=== PATIENT | female | born 1955 | race Caucasian/White ===

== ENCOUNTER → 2020-08-08 | Outpatient (CLI) | payer MEDICARE, BC ==
--- NOTE | 2020-08-15 10:21 | MM ---
Reason for exam: screening (asymptomatic). Last mammogram was performed 1 year and 1 month ago. History: Patient is postmenopausal. Physical Findings: A clinical breast exam by your physician is recommended on an annual basis and results should be correlated with mammographic findings. MG 3D Screening Mammo W/Cad Bilateral CC and MLO view(s) were taken. Prior study comparison: June 30, 2019, mammogram. May 28, 2018, mammogram. The breast tissue is heterogeneously dense. This may lower the sensitivity of mammography. Benign vascular calcifications on the right breast. No significant changes when compared with prior studies. ASSESSMENT: Negative, BI-RAD 1 RECOMMENDATION: Routine screening mammogram of both breasts in 1 year.
== END | disposition home or self-care (01) ==
LOC: RADMAMWWP 13:49
PROVIDERS: ATTEND Family Medicine
DX: Z12.31 Encounter for screening mammogram for malignant neoplasm of breast (principal)
CPT/HCPCS: 77063; 77067

== ENCOUNTER → 2021-08-16 | Outpatient (CLI) | payer MEDICARE, BC ==
--- NOTE | 2021-08-17 11:33 | MM ---
Reason for exam: screening (asymptomatic). Last mammogram was performed 1 year ago. History: Patient is postmenopausal. Physical Findings: A clinical breast exam by your physician is recommended on an annual basis and results should be correlated with mammographic findings. MG 3D Screening Mammo W/Cad Bilateral CC and MLO view(s) were taken. Prior study comparison: August 08, 2020, bilateral MG 3d screening mammo w/cad. June 30, 2019, mammogram. The breast tissue is heterogeneously dense. This may lower the sensitivity of mammography. There is no discrete abnormality. No significant changes when compared with prior studies. ASSESSMENT: Negative, BI-RAD 1 RECOMMENDATION: Routine screening mammogram of both breasts in 1 year.
== END | disposition home or self-care (01) ==
LOC: RADMAMWWP 07:12
PROVIDERS: ATTEND Family Medicine
DX: Z12.31 Encounter for screening mammogram for malignant neoplasm of breast (principal); Z78.0 Asymptomatic menopausal state
CPT/HCPCS: 77063; 77067

== ENCOUNTER → 2022-08-17 | Outpatient (CLI) | payer MEDICARE, BC ==
--- NOTE | 2022-08-17 12:09 | BD ---
EXAMINATION TYPE: Axial Bone Density DATE OF EXAM: 08/17/2022 COMPARISON: NONE CLINICAL HISTORY: 67 years year old Female. ICD-10 CODE: Z13.820 SCREENING FOR OSTEOPOROSIS Height: 56 Weight: 148 FRAX RISK QUESTIONS: Alcohol (3 or more units per day): NO Family History (Parent hip fracture): NO Glucocorticoids (More than 3mos): NO History of Fracture in Adulthood: NO Secondary Osteoporosis: 1. Type 1 Diabetes: NO 2. Hyperthyroidism: NO 3. Menopause before 45: NO 4. Malnutrition: NO 5. Chronic liver disease: NO Rheumatoid Arthritis: NO Current Tobacco Use: NO RISK FACTORS HISTORY OF: Hip Fracture (Right/Left): NO Spine Fracture: NO History of Wrist Fracture: NO Surgery to Spine/Hip(right/left)/Wrist (right/left): NO Family History of Osteoporosis: NO Active: YES Diet low in dairy products/other sources of calcium: YES Postmenopausal woman: YES Take estrogen and/or progesterone medications: NO Lost more than 2 inches in height since high school: NO Frequent falls: NO Poor Health: NO Hyperparathyroidism: NO Adrenal Insufficiency: NO MEDICATIONS: Prednisone or other steroids: NO Thyroid Medications: NO Which medication: Osteoporosis Medications: NO Additional Medications: metformin, hydrochlorate, atorvastatin, multi vit., vit d EXAM MEASUREMENTS: Bone mineral densitometry was performed using the [employer] System. Bone mineral density as measured about the Lumbar spine is: ----- L1-L4(G/cm2): 1.405 T Score Values are as follows: ----- L1: 0.7 ----- L2: 1.4 ----- L3: 2.9 ----- L4: 2.1 ----- L1-L4: 1.9 BASELINE STUDY AT [facility] Bone mineral density about the R hip (g/cm2): 0.807 Bone mineral density about the L hip (g/cm2): 0.798 T Score values are as follows: -----R Neck: -1.7 -----L Neck: -1.7 -----R Total: -1.4 -----L Total: -1.6 BASELINE STUDY AT [facility] FRAX%s: The graph provided illustrates a 9.7% chance for a major osteoporotic fx and a 1.3% chance fo r the hips probability for fx in 10 years time. IMPRESSION: Osteopenia (T Score between -2.5 and -1). There is slightly increased risk of fracture and the patient may be considered for treatment. Re-Screen 2-5 years. NOTE: T-SCORE=SD OF THE YOUNG ADULT MEAN.
--- NOTE | 2022-08-20 20:31 | MM ---
Reason for Exam: Screening (asymptomatic). Last screening mammogram was performed 12 month(s) ago. Patient History: Menarche at age 12. First Full-Term at age 19. Postmenopausal. Niece had breast cancer, age 35. Maternal cousin (Vicki) had breast cancer, age 68. Maternal cousin (Dorothy Trotter) had breast cancer, age 72. Maternal cousin (Rose Marie) had breast cancer, age 43. Risk Values: Laura 5 year model risk: 1.2%. NCI Lifetime model risk: 4.2%. Prior Study Comparison: 06/30/2019 Screening Mammogram, Unknown. 08/08/2020 Bilateral Screening Mammogram, [facility]. 08/16/2021 Bilateral Screening Mammogram, [facility]. Tissue Density: The breast tissue is heterogeneously dense. This may lower the sensitivity of mammography. Findings: Analyzed By CAD. There is no suspicious group of microcalcifications or new suspicious mass in either breast. Chronically inverted nipples. Unchanged global asymmetry posterior upper outer quadrant left breast. Overall Assessment: Benign, BI-RAD 2 Management: Screening Mammogram of both breasts in 1 year. 1. Patient should continue monthly self breast exams. 2. A clinical breast exam by your physician is recommended on an annual basis. 3. This exam should not preclude additional follow-up of suspicious palpable abnormalities. Electronically signed and approved by: Lenard Larsen M.D. Radiologist
== END | disposition home or self-care (01) ==
LOC: RADMAMWWP 10:08
PROVIDERS: ATTEND Family Medicine
DX: Z12.31 Encounter for screening mammogram for malignant neoplasm of breast (principal); Z13.820 Encounter for screening for osteoporosis; M85.89 Other specified disorders of bone density and structure, multiple sites
CPT/HCPCS: 77063; 77067; 77080

== ENCOUNTER → 2023-08-19 | Outpatient (CLI) | payer MEDICARE, BC ==
--- NOTE | 2023-08-20 10:34 | MM ---
Reason for Exam: Screening (asymptomatic). Last screening mammogram was performed 12 month(s) ago. Patient History: Menarche at age 12. First Full-Term at age 19. Postmenopausal. Niece had breast cancer, age 35. Maternal cousin (Vicki) had breast cancer, age 68. Maternal cousin (Dorothy Trotter) had breast cancer, age 72. Maternal cousin (Rose Marie) had breast cancer, age 43. Risk Values: Laura 5 year model risk: 1.2%. NCI Lifetime model risk: 4.0%. Prior Study Comparison: 08/08/2020 Bilateral Screening Mammogram, [facility]. 08/16/2021 Bilateral Screening Mammogram, [facility]. 08/17/2022 Bilateral MG 3D screening mammo w/cad, [facility]. Tissue Density: The breast tissue is heterogeneously dense. This may lower the sensitivity of mammography. Findings: Analyzed By CAD. Pattern appears symmetrical and stable. No significant interval change is evident. Benign vascular calcification in the right breast. No suspicious groups of microcalcifications, spiculated or lobular masses, architectural distortion or other secondary signs of malignancy are mammographically apparent. Overall Assessment: Benign, BI-RAD 2 Management: Screening Mammogram of both breasts in 1 year. A negative mammogram report should not preclude additional follow up of suspicious palpable abnormalities. Patient should continue monthly self breast exam. A clinical breast exam by your physician is recommended on an annual basis and results should be correlated with mammographic findings. Electronically signed and approved by: Eladio Gimenez D.O. Radiologis
== END | disposition home or self-care (01) ==
LOC: RADMAMWWP 09:06
PROVIDERS: ATTEND Family Medicine
DX: Z12.31 Encounter for screening mammogram for malignant neoplasm of breast (principal); Z78.0 Asymptomatic menopausal state; Z80.3 Family history of malignant neoplasm of breast
CPT/HCPCS: 77063; 77067

== ENCOUNTER → 2024-08-21 | Outpatient (CLI) | payer MEDICARE, BC ==
--- NOTE | 2024-08-21 08:19 | US ---
EXAMINATION TYPE: US abdomen complete DATE OF EXAM: 08/21/2024 COMPARISON: NONE CLINICAL INDICATION: Female, 69 years old with history of R10.84 ABD PAIN; Pain TECHNIQUE: Grayscale and color Doppler imaging of the abdomen was performed. FINDINGS: EXAM MEASUREMENTS: Liver Length: 14.7 cm Gallbladder Wall: .5 cm CBD: .4 cm Spleen: 9.5 cm Right Kidney: 9.2 x 4.4 x 3.8 cm Left Kidney: 9.9 x 4.3 x 3.5 cm Pancreas: Tail obscured by overlying bowel gas Liver: Increased attenuation no dilated ducts, masses or cysts. Gallbladder: Multiple stones seen Evidence for sonographic Flood's sign: no CBD: wnl Spleen: wnl Right Kidney: No hydronephrosis or masses seen Left Kidney: No hydronephrosis or masses seen Upper IVC: wnl Abd Aorta: wnl The liver is homogenous with increased echotexture.. The intrahepatic portion of the IVC and proxima l abdominal aorta are within normal limits. There is no evidence of cholelithiasis. Common bile yariel t is unremarkable. The visualized portions of the pancreas are homogenous. The spleen is unremarkab le. Kidneys are symmetric and free of hydronephrosis. No renal lesions are seen. IMPRESSION: 1. No evidence for acute process. 2. Hepatic steatosis. [facility], , 08/21/2024 8:16 AM
--- NOTE | 2024-08-30 16:56 | MM ---
Reason for Exam: Screening (asymptomatic). Last mammogram was performed 1 year(s) and 1 month(s) ago. Patient History: Menarche at age 12. First Full-Term at age 19. Postmenopausal. Niece had breast cancer, age 35. Maternal cousin (Vicki) had breast cancer, age 68. Maternal cousin (Dorothy Trotter) had breast cancer, age 72. Maternal cousin (Rose Marie) had breast cancer, age 43. Risk Values: Laura 5 year model risk: 1.2%. NCI Lifetime model risk: 3.9%. Prior Study Comparison: 08/16/2021 Bilateral Screening Mammogram, [facility]. 08/17/2022 Bilateral MG 3D screening mammo w/cad, [facility]. 08/19/2023 Bilateral MG 3D screening mammo w/cad, [facility]. Tissue Density: The breasts are heterogeneously dense, which may obscure small masses. Findings: Analyzed By CAD. The pattern is symmetrical. Vascular calcifications within the right breast. There is a focal asymmetry within the upper outer aspect left breast which appears to be changing. Additional workup with compression views and mediolateral view are recommended. Ultrasound may be acquired to complete the examination. Right breast:No suspicious groups of microcalcifications, spiculated or lobular masses, architectural distortion or other secondary signs of malignancy are mammographically apparent. Overall Assessment: Incomplete: need additional imaging evaluation, BI-RAD 0 Management: Diagnostic Mammogram of the left breast. Diagnostic Breast Ultrasound of the left breast. A negative mammogram report should not preclude additional follow up of suspicious palpable abnormalities. Patient should continue monthly self breast exam. A clinical breast exam by your physician is recommended on an annual basis and results should be correlated with mammographic findings. Note on Laura scores and lifetime risk: 1. A Laura score greater than 3% is considered moderate risk. If this is the case, consider specialist referral to assess eligibility for a risk reducing agent. 2. If overall lifetime risk for the development of breast cancer is 20% or higher, the patient may qualify for future screening with alternating mammogram and breast MRI. [facility], , 08/30/2024 4:53 PM. Electronically signed and approved by: Eladio Gimenez D.O. Radiologis
== END | disposition home or self-care (01) ==
LOC: RADUSWWP 06:46
PROVIDERS: ATTEND Family Medicine
DX: Z12.31 Encounter for screening mammogram for malignant neoplasm of breast (principal); R92.333 Mammographic heterogeneous density, bilateral breasts; K76.0 Fatty (change of) liver, not elsewhere classified; Z78.0 Asymptomatic menopausal state; Z80.3 Family history of malignant neoplasm of breast
CPT/HCPCS: 76700; 77063; 77067

== ENCOUNTER → 2024-09-02 | Outpatient (CLI) | payer MEDICARE, BC ==
--- NOTE | 2024-09-02 10:34 | MM ---
Reason for Exam: Additional evaluation requested from abnormal screening. Last screening mammogram was performed less than 1 month ago. Patient History: Menarche at age 12. First Full-Term at age 19. Postmenopausal. Niece had breast cancer, age 35. Maternal cousin (Vicki) had breast cancer, age 68. Maternal cousin (Dorothy Trotter) had breast cancer, age 72. Maternal cousin (Rose Marie) had breast cancer, age 43. Risk Values: Laura 5 year model risk: 1.2%. NCI Lifetime model risk: 3.9%. Prior Study Comparison: 08/17/2022 Bilateral MG 3D screening mammo w/cad, [facility]. 08/19/2023 Bilateral MG 3D screening mammo w/cad, [facility]. 08/21/2024 Bilateral MG 3D screening mammo w/cad, [facility]. Tissue Density: Left: The breasts are heterogeneously dense, which may obscure small masses. Findings: Analyzed By CAD. Pattern is stable There is persistent focal asymmetry in the upper outer left breast on compression views. Discrete spiculated or lobulated mass ovary is not identified. Ultrasound recommended for additional evaluation. Overall Assessment: Incomplete: need additional imaging evaluation, BI-RAD 0 Management: Diagnostic Breast Ultrasound of the left breast. A negative mammogram report should not preclude additional follow up of suspicious palpable abnormalities. Patient should continue monthly self breast exam. A clinical breast exam by your physician is recommended on an annual basis and results should be correlated with mammographic findings. Note on Laura scores and lifetime risk: 1. A Laura score greater than 3% is considered moderate risk. If this is the case, consider specialist referral to assess eligibility for a risk reducing agent. 2. If overall lifetime risk for the development of breast cancer is 20% or higher, the patient may qualify for future screening with alternating mammogram and breast MRI. [facility], , 09/02/2024 10:31 AM. Electronically signed and approved by: Eladio Gimenez D.O. Radiologis
--- NOTE | 2024-09-02 11:04 | USB ---
Reason for Exam: Additional evaluation requested from abnormal screening. Patient History: Menarche at age 12. First Full-Term at age 19. Postmenopausal. Niece had breast cancer, age 35. Maternal cousin (Vicki) had breast cancer, age 68. Maternal cousin (Dorothy Trotter) had breast cancer, age 72. Maternal cousin (Rose Marie) had breast cancer, age 43. Risk Values: Laura 5 year model risk: 1.2%. NCI Lifetime model risk: 3.9%. Technique: Method: Targeted. Patient Position: Supine. Prior Study Comparison: 08/17/2022 Bilateral MG 3D screening mammo w/cad, [facility]. 08/19/2023 Bilateral MG 3D screening mammo w/cad, [facility]. 08/21/2024 Bilateral MG 3D screening mammo w/cad, [facility]. Findings: The upper outer quadrant of the left breast, the axilla of the left breast and the retroareolar of the left breast were scanned. In the upper outer quadrant left breast 1:00 position 9 cm from nipple there is an ill-defined hypodensity measuring 1.1 x 1.3 x 0.6 cm. Overall Assessment: Suspicious, BI-RAD 4 Management: Ultrasound Core Biopsy of the left breast. A clinical breast exam by your physician is recommended on an annual basis and results should be correlated with mammographic findings. This exam should not preclude additional follow-up of suspicious palpable abnormalities. Results were given to the patient verbally at the time of exam. [facility], , 09/02/2024 10:56 AM. Electronically signed and approved by: Eladio Gimenez D.O. Radiologis
== END | disposition home or self-care (01) ==
LOC: RADMAMWWP 10:06
PROVIDERS: ATTEND Family Medicine
DX: R92.8 Other abnormal and inconclusive findings on diagnostic imaging of breast (principal); R92.333 Mammographic heterogeneous density, bilateral breasts; Z78.0 Asymptomatic menopausal state; Z80.3 Family history of malignant neoplasm of breast
CPT/HCPCS: 77065; 76642; G0279; 77061

== ENCOUNTER → 2024-09-11 | Day surgery (SDC) | payer MEDICARE, BC ==
--- NOTE | 2024-09-11 11:16 | USB ---
Risk Values: Laura 5 year model risk: 1.2%. NCI Lifetime model risk: 3.9%. Procedure Description: The procedure of ultrasound guided core biopsy Electronically signed and approved by: Cuauhtemoc Marsh M.D. Radiologis
== END ==
LOC: RADUSWWP 10:03
PROVIDERS: ATTEND Family Medicine
DX: R92.8 Other abnormal and inconclusive findings on diagnostic imaging of breast (principal); Z53.8 Procedure and treatment not carried out for other reasons

== ENCOUNTER 2024-10-22 10:08 | Emergency (ER) | payer MEDICARE, BC ==
[2024-10-22 11:04] LABS: Appearance,Urine Clear (Clear); Bacteria,Urine Rare /hpf; Bilirubin,Urine Negative (Negative); Blood,Urine Large (Negative); Color,Urine Light Red; Glucose,Urine (UA) Negative (Negative); Ketones,Urine Negative (Negative); Leukocyte Esterase,Urine Large (Negative); Nitrite,Urine Negative (Negative); PH, Urine 6.5 (5.0-8.0); Protein,Urine 1+ (Negative); RBC,Urine 6 /hpf (0-5); Specific Gravity,Urine 1.002 (1.001-1.035); Squamous Epithelial Cell,Urine <1 /hpf (0-4); Urobilinogen,Urine <2.0 mg/dL (<2.0); WBC,Urine 55 /hpf (0-5)
--- NOTE | 2024-10-22 11:17 | ED ---
Female Urogenital HPI - General Chief complaint: Recheck/Abnormal Lab/Rx Stated complaint: Blood in urine Time Seen by Provider: 10/22/24 11:10 Source: patient, RN notes reviewed Mode of arrival: ambulatory Limitations: no limitations - History of Present Illness Initial comments: This is a 69-year-old female who presents to the emergency department for hematuria since 8 AM. Reports associated burning with urination. She has pain in the right lower pelvic region and left mid back. Denies any history of UTIs or similar symptoms in the past. Denies any history of kidney stones. She has not had any fevers or chills. Not taking any blood thinners. - Related Data Home Medications Medication Instructions Recorded Confirmed Aspirin [Stanley Aspirin EC] 81 mg PO DAILY 09/03/24 09/03/24 Atorvastatin [Lipitor] 20 mg PO DAILY 09/03/24 09/03/24 Losartan Potassium [Cozaar] 100 mg PO DAILY 09/03/24 09/03/24 Previous Rx's Medication Instructions Recorded Phenazopyridine [Pyridium] 200 mg PO TID PRN #9 tablet 10/22/24 cefuroxime axetiL [Ceftin] 500 mg PO BID 7 Days #14 tab 10/22/24 Allergies Allergy/AdvReac Type Severity Reaction Status Date / Time No Known Allergies Allergy Verified 10/22/24 10:14 Review of Systems ROS Statement: Those systems with pertinent positive or pertinent negative responses have been documented in the HPI. ROS Other: All systems not noted in ROS Statement are negative. Past Medical History Past Medical History: Hyperlipidemia, Hypertension History of Any Multi-Drug Resistant Organisms: None Reported Past Surgical History: No Surgical Hx Reported Past Anesthesia/Blood Transfusion Reactions: No Reported Reaction Past Psychological History: No Psychological Hx Reported Smoking Status: Never smoker Past Alcohol Use History: None Reported Past Drug Use History: None Reported General Exam Limitations: no limitations General appearance: alert, in no apparent distress Head exam: Present: atraumatic, normocephalic, normal inspection Respiratory exam: Present: normal lung sounds bilaterally. Absent: respiratory distress, wheezes, rales, rhonchi, stridor Cardiovascular Exam: Present: regular rate, normal rhythm, normal heart sounds. Absent: systolic murmur, diastolic murmur, rubs, gallop, clicks GI/Abdominal exam: Present: soft, normal bowel sounds. Absent: distended, tenderness, guarding, rebound, rigid Back exam: Present: CVA tenderness (L) Neurological exam: Present: alert, oriented X3, CN II-XII intact Psychiatric exam: Present: normal affect, normal mood Skin exam: Present: warm, dry, intact, normal color. Absent: rash Course Vital Signs 10/22/24 10/22/24 10:14 13:45 Temperature 98.1 F 98.2 F Pulse Rate 80 74 Respiratory 16 17 Rate Blood Pressure 180/73 169/73 O2 Sat by Pulse 100 98 Oximetry Medical Decision Making - Medical Decision Making This is a 69-year-old female who presents to the emergency department for urinary symptoms and hematuria. Was pt. sent in by a medical professional or institution? @ -No Did you speak to anyone other than the patient for history? @ -No Did you review nursing and triage notes? @ -Yes, and I agree, it is accurate with regards to the patient's symptoms. Were old charts reviewed? @ -No Differential Diagnosis? @ -UTI, pyelonephritis, kidney stone, injury, this is not meant to be an all- inclusive list. EKG interpreted by me (3pts min.)? @ -Not obtained X-rays interpreted by me (1pt min.)? @ -Not obtained CT interpreted by me (1pt min.)? @ -CT scan of the abdomen and pelvis obtained. My interpretation identifies no evidence of a ureteral calculus. U/S interpreted by me (1pt. min.)? @ -Not obtained What testing was considered but not performed? (CT, X-rays, U/S, labs)? Why? @ -None What meds were considered but not given? Why? @ -None Did you discuss the management of the patient with other professionals? @ -No Did you reconcile home meds? @ -No Was smoking cessation discussed for >3mins.? @ -No Was critical care preformed (if so, how long)? @ -No Were there social determinants of health that impacted care today? How? (Homelessness, low income, unemployed, alcoholism, drug addiction, transportation, low edu. Level, literacy, decrease access to med. care, [place] [facility], rehab)? @ -No Was there de-escalation of care discussed even if they declined? (Discuss DNR or withdrawal of care, Hospice)? @ -No What co-morbidities impacted this encounter? (DM, HTN, Smoking, COPD, CAD, Cancer, CVA, Hep., AIDS, mental health diagnosis, sleep apnea, morbid obesity)? @ -None Was patient admitted / discharged? @ -Discharged. Lab work demonstrates mild leukocytosis and was otherwise unremarkable. Urinalysis demonstrates an elevation of both blood and WBCs. Bacteria is also noted as well. Urine sent for culture. CT scan of the abdomen and pelvis obtained revealing no evidence of obstructive uropathy or other acute process. Advised that symptoms may be related to a UTI. She was given 1g of Ceftriaxone in the emergency department. Prescription for cefuroxime and Pyridium provided. Advised follow-up with her PCP for reevaluation. Patient discharged home in stable condition. Case discussed with ED attending Dr. Lanza. Return precautions reviewed in depth, the patient is instructed to return to the emergency department with any new, worsening, or concerning symptoms. Patient verbalized understanding. Undiagnosed new problem with uncertain prognosis? @ -None Drug Therapy requiring intensive monitoring for toxicity (Heparin, Nitro, Insulin, Cardizem)? @ -None Were any procedures done? @ -None Diagnosis/symptom? @ -UTI Acute, or Chronic, or Acute on Chronic? @ -Acute Uncomplicated (without systemic symptoms) or Complicated (systemic symptoms)? @ -Uncomplicated Side effects of treatment? @ -None Exacerbation, Progression, or Severe Exacerbation] @ -Not applicable Poses a threat to life or bodily function? @ -No - Lab Data Result diagrams: 10/22/24 11:45 10/22/24 11:45 Lab Results 10/22/24 10/22/24 10/22/24 Range/Units 10:15 11:45 11:45 WBC 12.5 H (3.8-10.6) k/uL RBC 4.19 (3.80-5.40) m/uL Hgb 13.6 (11.4-16.0) gm/dL Hct 40.8 (34.0-46.0) % MCV 97.5 (80.0-100.0) fL MCH 32.6 (25.0-35.0) pg MCHC 33.4 (31.0-37.0) g/dL RDW 11.8 (11.5-15.5) % Plt Count 230 (150-450) k/uL MPV 7.1 Neutrophils % 82 % Lymphocytes % 12 % Monocytes % 5 % Eosinophils % 1 % Basophils % 0 % Neutrophils # 10.2 H (1.3-7.7) k/uL Lymphocytes # 1.5 (1.0-4.8) k/uL Monocytes # 0.6 (0-1.0) k/uL Eosinophils # 0.1 (0-0.7) k/uL Basophils # 0.0 (0-0.2) k/uL Sodium 140 (137-145) mmol/L Potassium 4.5 (3.5-5.1) mmol/L Chloride 105 (98-107) mmol/L Carbon Dioxide 26 (22-30) mmol/L Anion Gap 9 mmol/L BUN 19 H (7-17) mg/dL Creatinine 1.00 (0.52-1.04) mg/dL Est GFR (CKD-EPI)AfAm 67 (>60 ml/min/1.73 sqM) Est GFR (CKD-EPI)NonAf 58 (>60 ml/min/1.73 sqM) Glucose 98 (74-99) mg/dL Calcium 9.9 (8.4-10.2) mg/dL Total Bilirubin 1.2 (0.2-1.3) mg/dL AST 37 H (14-36) U/L ALT 42 H (4-34) U/L Alkaline Phosphatase 103 (38-126) U/L Total Protein 7.0 (6.3-8.2) g/dL Albumin 4.4 (3.5-5.0) g/dL Urine Color Light Red Urine Appearance Clear (Clear) Urine pH 6.5 (5.0-8.0) Ur Specific [place] 1.002 (1.001-1.035) Urine Protein 1+ H (Negative) Urine Glucose (UA) Negative (Negative) Urine Ketones Negative (Negative) Urine Blood Large H (Negative) Urine Nitrite Negative (Negative) Urine Bilirubin Negative (Negative) Urine Urobilinogen <2.0 (<2.0) mg/dL Ur Leukocyte Esterase Large H (Negative) Urine RBC 6 H (0-5) /hpf Urine WBC 55 H (0-5) /hpf Ur Squamous Epith Cells <1 (0-4) /hpf Urine Bacteria Rare H (None) /hpf - Radiology Data Radiology results: report reviewed, image reviewed Disposition Clinical Impression: UTI (urinary tract infection) Disposition: HOME SELF-CARE Instructions (If sedation given, give patient instructions): Urinary Tract Infection in Women (ED) Additional Instructions: Return to the emergency department with any new, worsening, or concerning symptoms. Take the antibiotic as prescribed for 7 days. Take the Pyridium up to 3 times daily as needed for burning with urination. Be aware that this may turn your urine orange. Follow up with your primary care provider in 1-2 days. Prescriptions: cefuroxime axetiL [Ceftin] 500 mg PO BID 7 Days #14 tab Phenazopyridine [Pyridium] 200 mg PO TID PRN #9 tablet PRN Reason: Pain Is patient prescribed a controlled substance at d/c from ED?: No Referrals: Neelima Wellington DO [Primary Care Provider] - 1-2 days Time of Disposition: 13:10
[2024-10-22 12:00] LABS: Basophils % (A) 0 %; Eosinophils # (A) 0.1 k/uL (0-0.7); Eosinophils % (A) 1 %; HCT 40.8 % (34.0-46.0); HGB 13.6 gm/dL (11.4-16.0); Lymphocytes # (A) 1.5 k/uL (1.0-4.8); Lymphocytes % (A) 12 %; MCH 32.6 pg (25.0-35.0); MCHC 33.4 g/dL (31.0-37.0); MCV 97.5 fL (80.0-100.0); Mean Platelet Volume 7.1; Monocytes # (A) 0.6 k/uL (0-1.0); Monocytes % (A) 5 %; Neutrophils # (A) 10.2 k/uL (1.3-7.7); Neutrophils % (A) 82 %; Platelet Count 230 k/uL (150-450); RBC 4.19 m/uL (3.80-5.40); RDW 11.8 % (11.5-15.5); WBC 12.5 k/uL (3.8-10.6)
[2024-10-22 12:10] LABS: ALT 42 U/L (4-34); AST 37 U/L (14-36); African American GFR (CKD) 67 (>60 ml/min/1.73 sqM); Albumin 4.4 g/dL (3.5-5.0); Alkaline Phosphatase 103 U/L (38-126); Anion Gap 9 mmol/L; Blood Urea Nitrogen 19 mg/dL (7-17); Calcium 9.9 mg/dL (8.4-10.2); Carbon Dioxide 26 mmol/L (22-30); Chloride 105 mmol/L (98-107); Glucose 98 mg/dL (74-99); Non-African American GFR(CKD) 58 (>60 ml/min/1.73 sqM); Potassium 4.5 mmol/L (3.5-5.1); Sodium 140 mmol/L (137-145); Total Bilirubin 1.2 mg/dL (0.2-1.3)
--- NOTE | 2024-10-22 13:03 | CT ---
EXAMINATION TYPE: CT abdomen pelvis wo con CT DLP: 354.8 mGycm, Automated exposure control for dose reduction was used. DATE OF EXAM: 10/22/2024 12:23 PM COMPARISON: Abdominal ultrasound 08/21/2024 CLINICAL INDICATION:Female, 69 years old with history of Right flank pain, hematuria; Lower abdominal pain, hematuria. TECHNIQUE: Standard CT of the abdomen and pelvis without IV or oral contrast. Lack of IV or oral co ntrast limits evaluation of solid and hollow organ viscera. Coronal and sagittal reformats were perfo rmed. FINDINGS: LOWER CHEST: Unremarkable ABDOMEN LIVER: Unremarkable noncontrast appearance GALLBLADDER AND BILE DUCTS: Cholelithiasis. No biliary ductal dilatation. PANCREAS: Unremarkable noncontrast appearance. SPLEEN: Unremarkable noncontrast appearance. ADRENAL GLANDS: Unremarkable noncontrast appearance. KIDNEYS AND URETERS: No evidence of hydronephrosis or renal calculus. Bilateral extrarenal pelvises. No definitive ureteral calculus. PELVIS BLADDER: Unremarkable REPRODUCTIVE: Unremarkable noncontrast appearance. ABDOMEN & PELVIS STOMACH AND BOWEL: Stomach and duodenum are unremarkable. No focal bowel wall thickening or surroundi ng inflammatory changes. The appendix is within normal limits. No evidence of bowel obstruction. PERITONEUM: No evidence of pneumoperitoneum or free fluid. VASCULATURE: Moderate atherosclerotic calcifications are present throughout the abdominal aorta and i ts branches. No evidence of aortic aneurysm. Pelvic phleboliths. MUSCULOSKELETAL: No acute osseous abnormalities LYMPH NODES: No gross evidence for lymphadenopathy. SOFT TISSUE/ABDOMINAL WALL: Unremarkable IMPRESSION: 1. No CT evidence for acute abdominopelvic process within limitations of a noncontrast exam. No obst ructive uropathy. 2. Cholelithiasis. [facility], , 10/22/2024 1:01 PM
[2024-10-22] MEDS: cefTRIAXone IN SWFI 1,000 MG/10 ML SYRINGE IVP STA (13:43)
[2024-10-22 14:17] VITALS: BP 169/73; PULSE 74; RESP 17; TEMP 98.2
== END 2024-10-22 13:50 | disposition home or self-care (01) ==
LOC: EC 10:08
DX: N39.0 Urinary tract infection, site not specified (principal)
CPT/HCPCS: 36415; 80053; 85025; 81001; 87086; 74176; 99283; 96374; J0696

== ENCOUNTER → 2025-03-01 | Outpatient (CLI) | payer MEDICARE, BC ==
--- NOTE | 2025-03-01 08:15 | MM ---
Reason for Exam: Follow-up at short interval from prior study. Last screening mammogram was performed 6 month(s) ago. Patient History: Menarche at age 12. First Full-Term at age 19. Postmenopausal. 09/11/2024, US discontinued breast bx LT on the left side. Niece had breast cancer, age 35. Maternal cousin (Vicki) had breast cancer, age 68. Maternal cousin (Dorothy Trotter) had breast cancer, age 72. Maternal cousin (Rose Marie) had breast cancer, age 43. Risk Values: Laura 5 year model risk: 1.2%. NCI Lifetime model risk: 3.7%. Prior Study Comparison: 08/19/2023 Bilateral MG 3D screening mammo w/cad, [facility]. 08/21/2024 Bilateral MG 3D screening mammo w/cad, [facility]. 09/02/2024 Left MG 3D work up w/cad LT, [facility]. Tissue Density: Left: The breasts are heterogeneously dense, which may obscure small masses. Findings: Analyzed By CAD. Stable asymmetric prominent tissue upper-outer aspect left breast. No suspicious new mass or worrisome cluster of microcalcification in the left breast. Overall Assessment: Negative, BI-RAD 1 Management: Screening Mammogram of both breasts in 6 months. Back on schedule. Results were given to the patient verbally at the time of exam. Patient should continue monthly self-breast exams. A clinical breast exam by your physician is recommended on an annual basis. This exam should not preclude additional follow-up of suspicious palpable abnormalities. Note on Laura scores and lifetime risk: 1. A Laura score greater than 3% is considered moderate risk. If this is the case, consider specialist referral to assess eligibility for a risk reducing agent. 2. If overall lifetime risk for the development of breast cancer is 20% or higher, the patient may qualify for future screening with alternating mammogram and breast MRI. [facility], , 03/01/2025 8:12 AM. Electronically signed and approved by: Guillaume Glass M.D.
--- NOTE | 2025-03-01 08:37 | USB ---
Reason for Exam: Follow-up at short interval from prior study. Patient History: Menarche at age 12. First Full-Term at age 19. Postmenopausal. 09/11/2024, US discontinued breast bx LT on the left side. Niece had breast cancer, age 35. Maternal cousin (Vicki) had breast cancer, age 68. Maternal cousin (Dorothy Trotter) had breast cancer, age 72. Maternal cousin (Rose Marie) had breast cancer, age 43. Risk Values: Laura 5 year model risk: 1.2%. NCI Lifetime model risk: 3.7%. Technique: Method: Targeted. Prior Study Comparison: 08/19/2023 Bilateral MG 3D screening mammo w/cad, [facility]. 08/21/2024 Bilateral MG 3D screening mammo w/cad, [facility]. 09/02/2024 Left MG 3D work up w/cad LT, [facility]. Findings: The upper section of the breast of the left breast, the axilla of the left breast and the retroareolar of the left breast were scanned. Targeted ultrasound. Heterogeneity left breast 1:00 position 9 cm distance from nipple redemonstrated and unchanged from most recent ultrasound. No new solid or cystic mass identified. Benign-appearing lymph node in left axilla is noted. Overall Assessment: Benign, BI-RAD 2 Management: Screening Mammogram of both breasts in 6 months. Return to routine follow-up. A clinical breast exam by your physician is recommended on an annual basis and results should be correlated with mammographic findings. This exam should not preclude additional follow-up of suspicious palpable abnormalities. Results were given to the patient verbally at the time of exam. [facility], , 03/01/2025 8:34 AM. Electronically signed and approved by: Guillaume Glass M.D.
== END | disposition home or self-care (01) ==
LOC: RADMAMWWP 07:57
PROVIDERS: ATTEND Family Medicine
DX: R92.8 Other abnormal and inconclusive findings on diagnostic imaging of breast (principal); R92.332 Mammographic heterogeneous density, left breast; Z78.0 Asymptomatic menopausal state; Z80.3 Family history of malignant neoplasm of breast
CPT/HCPCS: 77065; 76642; G0279; 77061